=== PATIENT | male | born 1985 | race Caucasian/White ===

== ENCOUNTER 2018-09-10 09:04 | Emergency (ER) | payer OTHER, SELFPAY ==
[2018-09-10] MEDS ORDERED: TORADOL IVP ONE (09:57)
[2018-09-10] MEDS ORDERED: MORPHINE IV ONE ×2 (09:57→11:22)
[2018-09-10] MEDS ORDERED: ZOFRAN IV ONE ×2 (09:57→11:22)
--- NOTE | 2018-09-10 09:59 | Emergency Department Report ---
ED General Adult HPI - General Chief complaint: Abdominal Pain Stated complaint: ABD/BACK PAIN/NAUSEA Time Seen by Provider: 09/10/18 09:53 Source: patient Mode of arrival: Ambulatory Limitations: No Limitations - History of Present Illness Initial comments: Patient presents to the emergency department chief complaint of right flank pain that radiates into his groin that started abruptly this morning. Patient describes the pain as being intense in nature and also endorses having some nausea and vomiting as well. Patient denies any chest pain, shortness of breath, or headache. -: Sudden Location: abdomen Radiation: other (groin) Severity scale (0 -10): 7 Quality: sharp Consistency: constant Improves with: none Worsens with: none Associated Symptoms: nausea/vomiting Treatments Prior to Arrival: none - Related Data Previous Rx's Medication Instructions Recorded Last Taken Type HYDROcodone/APAP 7.5-325 [[place] 1 each PO Q6HR PRN #15 tablet 09/10/18 Unknown Rx 7.5/325] Ketorolac [Toradol] 10 mg PO Q6H PRN #20 tablet 09/10/18 Unknown Rx Ondansetron [Zofran Odt] 4 mg PO Q6HR PRN #20 tab.rapdis 09/10/18 Unknown Rx Sulfamethoxazole/Trimethoprim 1 each PO BID #10 tablet 09/10/18 Unknown Rx [Bactrim DS TAB] Tamsulosin HCl [Flomax] 0.4 mg PO DAILY #7 cap.er.24h 09/10/18 Unknown Rx Allergies Allergy/AdvReac Type Severity Reaction Status Date / Time No Known Allergies Allergy Verified 09/10/18 09:25 ED Review of Systems ROS: Stated complaint: ABD/BACK PAIN/NAUSEA Other details as noted in HPI Comment: All other systems reviewed and negative Constitutional: denies: chills, fever Eyes: denies: eye pain, eye discharge, vision change ENT: denies: ear pain, throat pain Respiratory: denies: cough, shortness of breath, wheezing Cardiovascular: denies: chest pain, palpitations Endocrine: no symptoms reported Gastrointestinal: denies: abdominal pain, nausea, diarrhea Genitourinary: denies: urgency, dysuria Musculoskeletal: denies: back pain, joint swelling, arthralgia Skin: denies: rash, lesions Neurological: denies: headache, weakness, paresthesias Psychiatric: denies: anxiety, depression Hematological/Lymphatic: denies: easy bleeding, easy bruising ED Past Medical Hx - Past Medical History Previous Medical History?: Yes Hx Asthma: Yes - Surgical History Past Surgical History?: No - Social History Smoking Status: Never Smoker Substance Use Type: None - Medications Home Medications: Home Medications Medication Instructions Recorded Confirmed Last Taken Type HYDROcodone/APAP 7.5-325 [[place] 1 each PO Q6HR PRN #15 tablet 09/10/18 Unknown Rx 7.5/325] Ketorolac [Toradol] 10 mg PO Q6H PRN #20 tablet 09/10/18 Unknown Rx Ondansetron [Zofran Odt] 4 mg PO Q6HR PRN #20 tab.rapdis 09/10/18 Unknown Rx Sulfamethoxazole/Trimethoprim 1 each PO BID #10 tablet 09/10/18 Unknown Rx [Bactrim DS TAB] Tamsulosin HCl [Flomax] 0.4 mg PO DAILY #7 cap.er.24h 09/10/18 Unknown Rx ED Physical Exam - General Limitations: No Limitations General appearance: alert, in no apparent distress - Head Head exam: Present: atraumatic, normocephalic - Eye Eye exam: Present: normal appearance - ENT ENT exam: Present: mucous membranes moist - Neck Neck exam: Present: normal inspection - Respiratory Respiratory exam: Present: normal lung sounds bilaterally. Absent: respiratory distress, wheezes, rales, rhonchi - Cardiovascular Cardiovascular Exam: Present: regular rate, normal rhythm. Absent: systolic murmur, diastolic murmur, rubs, gallop - GI/Abdominal GI/Abdominal exam: Present: soft, normal bowel sounds. Absent: distended, tenderness - Rectal Rectal exam: Present: deferred - Extremities Exam Extremities exam: Present: normal inspection - Back Exam Back exam: Present: normal inspection - Neurological Exam Neurological exam: Present: alert, oriented X3, CN II-XII intact. Absent: motor sensory deficit - Psychiatric Psychiatric exam: Present: normal affect, normal mood - Skin Skin exam: Present: warm, dry, intact, normal color. Absent: rash ED Course Vital Signs 09/10/18 09/10/18 09/10/18 09:23 09:51 10:07 Temperature 97.5 F L Pulse Rate 68 Respiratory 20 16 18 Rate Blood Pressure 150/95 O2 Sat by Pulse 98 Oximetry 09/10/18 09/10/18 10:40 11:44 Temperature Pulse Rate Respiratory 15 15 Rate Blood Pressure O2 Sat by Pulse Oximetry ED Medical Decision Making - Lab Data Result diagrams: 09/10/18 10:02 09/10/18 10:02 Lab Results 09/10/18 09/10/18 09/10/18 Range/Units 10:02 10:02 Unknown WBC 13.1 H (4.5-11.0) K/mm3 RBC 5.85 H (3.65-5.03) M/mm3 Hgb 16.1 H (11.8-15.2) gm/dl Hct 50.1 H (35.5-45.6) % MCV 86 (84-94) fl MCH 28 (28-32) pg MCHC 32 (32-34) % RDW 13.6 (13.2-15.2) % Plt Count 330 (140-440) K/mm3 Lymph % (Auto) 14.6 (13.4-35.0) % [place] % (Auto) 5.7 (0.0-7.3) % Eos % (Auto) 1.0 (0.0-4.3) % Baso % (Auto) 0.4 (0.0-1.8) % Lymph # 1.9 (1.2-5.4) K/mm3 [place] # 0.7 (0.0-0.8) K/mm3 Eos # 0.1 (0.0-0.4) K/mm3 Baso # 0.1 (0.0-0.1) K/mm3 Seg Neutrophils % 78.3 H (40.0-70.0) % Seg Neutrophils # 10.3 H (1.8-7.7) K/mm3 Sodium 140 (137-145) mmol/L Potassium 4.5 (3.6-5.0) mmol/L Chloride 101.1 (98-107) mmol/L Carbon Dioxide 25 (22-30) mmol/L Anion Gap 18 mmol/L BUN 11 (9-20) mg/dL Creatinine 1.0 (0.8-1.5) mg/dL Estimated GFR > 60 ml/min BUN/Creatinine Ratio 11 % Glucose 133 H (75-100) mg/dL Calcium 10.0 (8.4-10.2) mg/dL Total Bilirubin 0.20 (0.1-1.2) mg/dL AST 23 (5-40) units/L ALT 26 (7-56) units/L Alkaline Phosphatase 88 (35-129) units/L Total Protein 8.0 (6.3-8.2) g/dL Albumin 4.8 (3.9-5) g/dL Albumin/Globulin Ratio 1.5 % Urine Color Yellow (Yellow) Urine Turbidity Clear (Clear) Urine pH 5.0 (5.0-7.0) Ur Specific [place] 1.029 (1.003-1.030) Urine Protein 30 mg/dl (Negative) mg/dL Urine Glucose (UA) Neg (Negative) mg/dL Urine Ketones Neg (Negative) mg/dL Urine Blood Mod (Negative) Urine Nitrite Neg (Negative) Urine Bilirubin Neg (Negative) Urine Urobilinogen < 2.0 (<2.0) mg/dL Ur Leukocyte Esterase Tr (Negative) Urine WBC (Auto) 5.0 (0.0-6.0) /HPF Urine RBC (Auto) 166.0 (0.0-6.0) /HPF U Epithel Cells (Auto) < 1.0 (0-13.0) /HPF Urine Bacteria (Auto) 1+ (Negative) /HPF Calcium Oxalate [place] Urine Mucus 3+ /HPF - Radiology Data Radiology results: report reviewed - Medical Decision Making Patient had relief of his symptoms with IV morphine and Toradol Results discussed with patient Elevated white count likely due to acute stress reaction Critical care attestation.: If time is entered above; I have spent that time in minutes in the direct care of this critically ill patient, excluding procedure time. ED Disposition Clinical Impression: Nephrolithiasis Disposition: DC-01 TO HOME OR SELFCARE Is pt being admited?: No Does the pt Need Aspirin: No Condition: Stable Instructions: Kidney Stones (ED) Additional Instructions: return if worse Prescriptions: HYDROcodone/APAP 7.5-325 [[place] 7.5/325] 1 each PO Q6HR PRN #15 tablet PRN Reason: Pain Ketorolac [Toradol] 10 mg PO Q6H PRN #20 tablet PRN Reason: Pain Ondansetron [Zofran Odt] 4 mg PO Q6HR PRN #20 tab.rapdis PRN Reason: Nausea Sulfamethoxazole/Trimethoprim [Bactrim DS TAB] 1 each PO BID #10 tablet Tamsulosin HCl [Flomax] 0.4 mg PO DAILY #7 cap.er.24h Referrals: PRIMARY CARE, [Primary Care Provider] - 3-5 Days MARIA SONI MD [Staff Physician] - 3-5 Days Forms: Work/School Release Form(ED) Time of Disposition: 12:24
[2018-09-10 10:10] LABS: Basophils # (Auto) 0.1 K/mm3 (0.0-0.1); Basophils % (Auto) 0.4 % (0.0-1.8); Eosinophils # (Auto) 0.1 K/mm3 (0.0-0.4); Hematocrit 50.1 % (35.5-45.6); Hemoglobin 16.1 gm/dl (11.8-15.2); Lymphocytes # (Auto) 1.9 K/mm3 (1.2-5.4); Lymphocytes % (Auto) 14.6 % (13.4-35.0); Mean Corpuscular HGB Conc 32 % (32-34); Mean Corpuscular Volume 86 fl (84-94); Monocytes # (Auto) 0.7 K/mm3 (0.0-0.8); Monocytes % (Auto) 5.7 % (0.0-7.3); Platelet Count 330 K/mm3 (140-440); Red Blood Count 5.85 M/mm3 (3.65-5.03); Red Cell Distribution Width 13.6 % (13.2-15.2)
[2018-09-10 10:31] LABS: Alanine Aminotransferase 26 units/L (7-56); Albumin 4.8 g/dL (3.9-5); BUN/Creatinine Ratio 11; Blood Urea Nitrogen 11 mg/dL (9-20); Hemolysis Index 35
--- NOTE | 2018-09-10 11:05 | Cat Scan Report ---
CT ABDOMEN PELVIS WITHOUT CONTRAST: HISTORY: right flank pain. COMPARISON: none. TECHNIQUE: Helical CT in 1.25mm intervals without IV contrast. Sagittal and coronal reconstructions. FINDINGS: Lung bases: Normal. Liver: Normal. Biliary system: Normal. Pancreas: Normal. Spleen: Normal. Kidneys/ureters/bladder: A 5 x 6 x 6 mm calculus is identified in the mid right ureter near the level of L4. There is mild upstream right hydronephrosis. No additional ureteral stones. There are a few scattered punctate calyceal stones in both kidneys. No evidence for focal renal lesion or perinephric fluid. The bladder is unremarkable. Adrenal glands: Normal. Aorta: Normal. Intestines: Normal. Appendix: Normal. Pelvic viscera: Normal. Ascites: None. Adenopathy: None. Musculoskeletal: Normal. IMPRESSION: 5 x 6 x 6 mm calculus in the mid right ureter, mildly obstructing. Punctate bilateral renal calyceal stones.
[2018-09-10] MEDS ORDERED: REGLAN IV ONE (11:23)
[2018-09-10 11:37] LABS: Bacteria,Urine 1+ /HPF (Negative); Bilirubin,Urine NEG (Negative); Blood,Urine MOD (Negative); Calcium Oxalate Crystals,Urine FEW; Mucus,Urine 3+ /HPF; Urobilinogen,Urine < 2.0 mg/dL (<2.0)
[2018-09-10 11:38] LABS: Color,Urine Yellow (Yellow)
[2018-09-10 12:34] VITALS: BP 109/70
== END 2018-09-10 12:35 | disposition home or self-care (01) ==
LOC: ED 09:04
DX: N20.0 Calculus of kidney (principal); J45.909 Unspecified asthma, uncomplicated
CPT/HCPCS: 36415; 74176; 80053; 81001; 85025; 96374; 96375; 96376; 99284; J1885; J2270; J2405; J2765

== ENCOUNTER 2018-11-30 20:08 | Emergency (ER) | payer OTHER, SELFPAY ==
[2018-11-30] MEDS ORDERED: ZOFRAN ODT PO ONE (21:07)
[2018-11-30] MEDS ORDERED: ZOFRAN ODT ONE (21:07)
--- NOTE | 2018-11-30 21:08 | Emergency Department Report ---
Blank Doc - Documentation Documentation: 33 yo male with hx of kidney stone presents with flank pain x today stated vom iting active vomitting labs ACC evaluate
[2018-11-30] MEDS ORDERED: NACL 0.9% 1000 ML 1,000 ML IV ONE (21:09)
[2018-11-30 21:59] LABS: Basophils # (Auto) 0.1 K/mm3 (0.0-0.1); Basophils % (Auto) 0.7 % (0.0-1.8); Eosinophils % (Auto) 0.3 % (0.0-4.3); Hematocrit 46.4 % (35.5-45.6); Hemoglobin 15.7 gm/dl (11.8-15.2); Lymphocytes # (Auto) 1.8 K/mm3 (1.2-5.4); Lymphocytes % (Auto) 12.9 % (13.4-35.0); Mean Corpuscular HGB Conc 34 % (32-34); Mean Corpuscular Volume 84 fl (84-94); Monocytes # (Auto) 0.8 K/mm3 (0.0-0.8); Monocytes % (Auto) 5.7 % (0.0-7.3); Platelet Count 336 K/mm3 (140-440); Red Blood Count 5.53 M/mm3 (3.65-5.03); Red Cell Distribution Width 13.7 % (13.2-15.2)
[2018-11-30 22:19] LABS: Calcium 10.5 mg/dL (8.4-10.2)
[2018-11-30 22:56] LABS: Bilirubin,Urine NEG (Negative); Blood,Urine MOD (Negative); Color,Urine Amber (Yellow); Mucus,Urine 2+ /HPF; Urobilinogen,Urine < 2.0 mg/dL (<2.0)
[2018-11-30 23:00] LABS: Protein,Urine >500 mg/dL (Negative); RBC,Urine > 182.0 /HPF (0.0-6.0)
--- NOTE | 2018-11-30 23:16 | XRay Report ---
PROCEDURE: XR ABDOMEN 1V AP TECHNIQUE: Abdominal radiograph, single view. HISTORY: abd pain with N V COMPARISONS: None . FINDINGS: Bowel gas pattern: Nonobstructive . Masses or calcifications: None . Bony structures: No significant abnormality . Other: None . IMPRESSION: No acute abnormality. This document is electronically signed by Cordelia Fung DO., November 30 2018 11:14:12 PM ET
[2018-11-30] MEDS ORDERED: MORPHINE IV ONE (23:23)
[2018-11-30] MEDS ORDERED: ZOFRAN IV ONE (23:23)
--- NOTE | 2018-11-30 23:29 | Emergency Department Report ---
ED Abdominal Pain HPI - General Chief Complaint: Abdominal Pain Stated Complaint: ABD PAIN VOMITTING CONSTIPATION Time Seen by Provider: 11/30/18 21:05 Source: patient Mode of arrival: Ambulatory Limitations: No Limitations - History of Present Illness Initial Comments: 33-year-old male sent to the emergency room for an acute abdominal pain that started 2 hours prior to arrival. Patient reports that the pain is a 10 out of 10. Patient complains of bilateral flank pain groin pain. He reports urinary urgency but no frequency no dysuria. Patient denies any fever or chills. Patient has a past medical history kidney stone back in September 2018 feels that he has not passed a stone yet. Patient does report he works for [employer] is constantly lifting up heavy objects. MD Complaint: abdominal pain, flank pain -: hour(s) (2PTA) Location: diffuse, bilateral flank Radiation: other (abdomen) Severity scale (0 -10): 10 Quality: cramping, stabbing, sharp Consistency: constant Improves With: nothing Worsens With: movement Associated Symptoms: denies other symptoms, constipation - Related Data Previous Rx's Medication Instructions Recorded Last Taken Type Sulfamethoxazole/Trimethoprim 1 each PO BID #10 tablet 09/10/18 Unknown Rx [Bactrim DS TAB] HYDROcodone/APAP 7.5-325 [[place] 1 each PO Q6HR PRN #15 tablet 12/01/18 Unknown Rx 7.5-325 mg TAB] Ketorolac [Toradol] 10 mg PO Q6H PRN #20 tablet 12/01/18 Unknown Rx Ondansetron [Zofran ODT TAB] 4 mg PO Q6HR PRN #20 tab.rapdis 12/01/18 Unknown Rx Tamsulosin HCl [Flomax] 0.4 mg PO DAILY #7 cap.er.24h 12/01/18 Unknown Rx Allergies Allergy/AdvReac Type Severity Reaction Status Date / Time No Known Allergies Allergy Verified 09/10/18 09:25 ED Review of Systems ROS: Stated complaint: ABD PAIN VOMITTING CONSTIPATION Other details as noted in HPI Comment: All other systems reviewed and negative Constitutional: denies: chills, fever ED Past Medical Hx - Past Medical History Hx Kidney Stones: Yes Hx Asthma: Yes - Surgical History Past Surgical History?: No - Social History Smoking Status: Never Smoker Substance Use Type: None - Medications Home Medications: Home Medications Medication Instructions Recorded Confirmed Last Taken Type Sulfamethoxazole/Trimethoprim 1 each PO BID #10 tablet 09/10/18 Unknown Rx [Bactrim DS TAB] HYDROcodone/APAP 7.5-325 [[place] 1 each PO Q6HR PRN #15 tablet 12/01/18 Unknown Rx 7.5-325 mg TAB] Ketorolac [Toradol] 10 mg PO Q6H PRN #20 tablet 12/01/18 Unknown Rx Ondansetron [Zofran ODT TAB] 4 mg PO Q6HR PRN #20 tab.rapdis 12/01/18 Unknown Rx Tamsulosin HCl [Flomax] 0.4 mg PO DAILY #7 cap.er.24h 12/01/18 Unknown Rx ED Physical Exam - General Limitations: No Limitations General appearance: alert, in no apparent distress, other (appears to be uncomfortable) - Head Head exam: Present: atraumatic, normocephalic - Eye Eye exam: Present: PERRL, EOMI - ENT ENT exam: Present: mucous membranes moist - Cardiovascular Cardiovascular Exam: Present: regular rate, normal rhythm. Absent: systolic murmur, diastolic murmur, rubs, gallop - GI/Abdominal GI/Abdominal exam: Present: soft, tenderness, guarding, normal bowel sounds. Absent: distended - Extremities Exam Extremities exam: Present: normal inspection - Back Exam Back exam: Present: normal inspection - Neurological Exam Neurological exam: Present: alert, oriented X3 - Psychiatric Psychiatric exam: Present: normal affect, normal mood - Skin Skin exam: Present: warm, dry, intact, normal color. Absent: rash ED Course Vital Signs 11/30/18 11/30/18 11/30/18 20:38 21:07 22:15 Temperature 97.7 F 97 F L Pulse Rate 77 66 Respiratory 18 18 16 Rate Blood Pressure 128/77 128/77 O2 Sat by Pulse 100 100 Oximetry ED Medical Decision Making - Lab Data Result diagrams: 11/30/18 21:22 11/30/18 21:22 Laboratory Tests 11/30/18 11/30/18 11/30/18 21:22 21:22 22:41 WBC 14.0 H RBC 5.53 H Hgb 15.7 H Hct 46.4 H MCV 84 MCH 28 MCHC 34 RDW 13.7 Plt Count 336 Lymph % (Auto) 12.9 L [place] % (Auto) 5.7 Eos % (Auto) 0.3 Baso % (Auto) 0.7 Lymph # 1.8 [place] # 0.8 Eos # 0.0 Baso # 0.1 Seg Neutrophils % 80.4 H Seg Neutrophils # 11.3 H Sodium 141 Potassium 4.7 Chloride 100.3 Carbon Dioxide 23 Anion Gap 22 BUN 20 Creatinine 1.4 Estimated GFR 58 BUN/Creatinine Ratio 14 Glucose 140 H Calcium 10.5 H Total Creatine Kinase Amylase 66 Lipase 49 Urine Color [place] Urine Turbidity Clear Urine pH 9.0 H Ur Specific [place] 1.031 H Urine Protein >500 Urine Glucose (UA) Neg Urine Ketones 80 Urine Blood Mod Urine Nitrite Neg Urine Bilirubin Neg Urine Urobilinogen < 2.0 Ur Leukocyte Esterase Neg Urine WBC (Auto) 1.0 Urine RBC (Auto) > 182.0 Urine Mucus 2+ 11/30/18 23:00 WBC RBC Hgb Hct MCV MCH MCHC RDW Plt Count Lymph % (Auto) [place] % (Auto) Eos % (Auto) Baso % (Auto) Lymph # [place] # Eos # Baso # Seg Neutrophils % Seg Neutrophils # Sodium Potassium Chloride Carbon Dioxide Anion Gap BUN Creatinine Estimated GFR BUN/Creatinine Ratio Glucose Calcium Total Creatine Kinase 124 Amylase Lipase Urine Color Urine Turbidity Urine pH Ur Specific [place] Urine Protein Urine Glucose (UA) Urine Ketones Urine Blood Urine Nitrite Urine Bilirubin Urine Urobilinogen Ur Leukocyte Esterase Urine WBC (Auto) Urine RBC (Auto) Urine Mucus - Radiology Data Radiology results: report reviewed Patient: MARGO ROPER MR#: [id number] : 1985 Acct:[id number] Age/Sex: 33 / M ADM Date: 11/30/18 Loc: ED Attending Dr: Ordering Physician: TUNDE OLVERA Date of Service: 11/30/18 Procedure(s): XR abdomen 1V ap Accession Number(s): [id number] cc: TUNDE OLVERA Fluoro Time In Minutes: PROCEDURE: XR ABDOMEN 1V AP TECHNIQUE: Abdominal radiograph, single view. HISTORY: abd pain with N V COMPARISONS: None . FINDINGS: Bowel gas pattern: Nonobstructive . Masses or calcifications: None . Bony structures: No significant abnormality . Other: None . IMPRESSION: No acute abnormality. This document is electronically signed by Cordelia Fung DO. November 30 2018 11:14:12 PM ET Transcribed By: [facility] Dictated By: CORDELIA FUNG MD Electronically Authenticated By: CORDELIA FUNG MD Signed Date/Time: 11/30/182315 DD/ 10 TD/TT: 11/30/182310 Critical care attestation.: If time is entered above; I have spent that time in minutes in the direct care of this critically ill patient, excluding procedure time. ED Disposition Clinical Impression: Kidney stone on right side, Hydronephrosis Disposition: DC-01 TO HOME OR SELFCARE Is pt being admited?: No Does the pt Need Aspirin: No Condition: Stable Instructions: Kidney Stones (ED), How to Strain Your Urine (ED) Additional Instructions: Please take medication as prescribed. It is very important for you to follow up with the urologist. If he did not follow-up with the urologist your putting her kidney function in jeopardy of having failure. Please use strainer I have given the instructions on how to use. Please do not operate heavy machinery taken narcotic medication. Please increase her water intake by 2-3 L daily. Prescriptions: Tamsulosin HCl [Flomax] 0.4 mg PO DAILY #7 cap.er.24h HYDROcodone/APAP 7.5-325 [[place] 7.5-325 mg TAB] 1 each PO Q6HR PRN #15 tablet PRN Reason: Pain Ketorolac [Toradol] 10 mg PO Q6H PRN #20 tablet PRN Reason: Pain Ondansetron [Zofran ODT TAB] 4 mg PO Q6HR PRN #20 tab.rapdis PRN Reason: Nausea Referrals: B[facility] MD JOHN [Primary Care Provider] - 3-5 Days MARIA SONI MD [Staff Physician] - 3-5 Days
--- NOTE | 2018-12-01 03:08 | Cat Scan Report ---
PROCEDURE: CT ABDOMEN PELVIS WO CON TECHNIQUE: Computerized axial tomography of the abdomen and pelvis was performed without intravenous contrast. This study is performed without intravascular contrast material and its sensitivity for ab dominal and pelvic pathology, including neoplasms, inflammation, abscess, free fluid, thrombosis, art erial dissection and infarction, is reduced compared with a contrast enhanced study. HISTORY: flank pain COMPARISONS: None . FINDINGS: Visualized lower thorax: No significant abnormality. Liver: Normal size and attenuation. Spleen: Normal size and attenuation. Gallbladder and biliary system: Normal. Pancreas: Normal. Adrenals: Normal. Kidneys: Moderate right hydronephrosis and proximal hydroureter down to a 4 mm stone in the mid right ureter. The left collecting system is normal. Left small 1 to 2 mm renal calculi are noted.. GI tract: No obstruction. The cecum, appendix and colon are normal. Mild diverticular change in the distal colon. . Lymph nodes and mesentery: Normal. Vasculature: Normal.. Bladder: Normal. Reproductive organs: Normal. Peritoneum: No free fluid. Musculoskeletal structures: No significant abnormality. Other: None. IMPRESSION: Moderate right hydronephrosis and proximal hydroureter down to a 4 mm stone in the mid r ight ureter. Left renal calculi are noted. . This document is electronically signed by Cordelia Fung DO., December 01 2018 03:06:46 AM ET
[2018-12-01] MEDS ORDERED: ZOFRAN ONE (03:33)
[2018-12-01] MEDS ORDERED: NACL 0.9% 1000 ML 1,000 ML IV ONE (03:35)
[2018-12-01] MEDS ORDERED: MORPHINE IM ONE (03:36)
[2018-12-01] MEDS ORDERED: MORPHINE ONE (03:39)
[2018-12-01] MEDS ORDERED: ZOFRAN IV ONE (03:43)
[2018-12-01 05:34] VITALS: BP 110/59
== END 2018-12-01 05:36 | disposition home or self-care (01) ==
LOC: ED 20:08
DX: N13.30 Unspecified hydronephrosis (principal); N20.0 Calculus of kidney; J45.909 Unspecified asthma, uncomplicated
CPT/HCPCS: 36415; 74018; 74176; 80048; 81001; 82150; 82550; 83690; 85025; 96361; 96372; 96374; 96375; 96376; 99284; J2270; J2405; J7030; Q0162

== ENCOUNTER 2019-06-15 04:54 | Emergency (ER) | payer SELFPAY ==
[2019-06-15 05:36] LABS: Basophils # (Auto) 0.1 K/mm3 (0.0-0.1); Basophils % (Auto) 0.4 % (0.0-1.8); Eosinophils % (Auto) 0.2 % (0.0-4.3); Hemoglobin 16.3 gm/dl (11.8-15.2); Lymphocytes # (Auto) 1.8 K/mm3 (1.2-5.4); Lymphocytes % (Auto) 12.1 % (13.4-35.0); Mean Corpuscular HGB Conc 33 % (32-34); Mean Corpuscular Volume 85 fl (84-94); Monocytes # (Auto) 1.1 K/mm3 (0.0-0.8); Platelet Count 358 K/mm3 (140-440); Red Blood Count 5.75 M/mm3 (3.65-5.03); Red Cell Distribution Width 13.6 % (13.2-15.2)
[2019-06-15 06:15] LABS: Alanine Aminotransferase 20 units/L (7-56); Albumin 5.4 g/dL (3.9-5); BUN/Creatinine Ratio 11; Blood Urea Nitrogen 14 mg/dL (9-20); Calcium 10.7 mg/dL (8.4-10.2); Hemolysis Index 5
[2019-06-15] MEDS ORDERED: ZOFRAN ODT PO ONE (06:47)
[2019-06-15] MEDS ORDERED: NORCO 5/325 PO ONE (07:15)
[2019-06-15] MEDS ORDERED: NACL 0.9% 1000 ML 1,000 ML IV ONE (08:24)
--- NOTE | 2019-06-15 08:25 | Emergency Department Report ---
ED Abdominal Pain HPI - General Chief Complaint: Abdominal Pain Stated Complaint: ABD PAIN Time Seen by Provider: 06/15/19 08:17 Source: patient, EMS Mode of arrival: Ambulatory Limitations: No Limitations - History of Present Illness Initial Comments: 33-year-old male patient with history of kidney stones presents to the ED with acute onset left flank pain 2 AM today. Pain radiates around to left lower abdomen. He denies any hematuria, dysuria, or decreased urination. He rates pain at a 9 out of 10 in severity. He denies any stool changes, fever, or MD Complaint: abdominal pain, flank pain -: Sudden Location: L flank Migration to: LLQ Severity: severe Severity scale (0 -10): 10 Quality: sharp Consistency: constant Associated Symptoms: nausea. denies: vomiting - Related Data Previous Rx's Medication Instructions Recorded Last Taken Type Sulfamethoxazole/Trimethoprim 1 each PO BID #10 tablet 09/10/18 Unknown Rx [Bactrim DS TAB] HYDROcodone/APAP 7.5-325 [[place] 1 each PO Q6HR PRN #15 tablet 12/01/18 Unknown Rx 7.5-325 mg TAB] Ketorolac [Toradol] 10 mg PO Q6H PRN #20 tablet 12/01/18 Unknown Rx Ondansetron [Zofran ODT TAB] 4 mg PO Q6HR PRN #20 tab.rapdis 12/01/18 Unknown Rx Tamsulosin HCl [Flomax] 0.4 mg PO DAILY #7 cap.er.24h 12/01/18 Unknown Rx HYDROcodone/APAP 5-325 [[place] 1 each PO Q6HR PRN #10 tablet 06/15/19 Unknown Rx 5/325] Sulfamethoxazole/Trimethoprim 1 each PO BID 5 Days #10 tablet 06/15/19 Unknown Rx [Bactrim DS TAB] Tamsulosin [Flomax] 0.4 mg PO QDAY #4 cap 06/15/19 Unknown Rx Allergies Allergy/AdvReac Type Severity Reaction Status Date / Time No Known Allergies Allergy Verified 09/10/18 09:25 ED Review of Systems ROS: Stated complaint: ABD PAIN Other details as noted in HPI Comment: All other systems reviewed and negative Gastrointestinal: as per HPI ED Past Medical Hx - Past Medical History Previous Medical History?: Yes Hx Kidney Stones: Yes Hx Asthma: Yes - Surgical History Past Surgical History?: No - Social History Smoking Status: Never Smoker Substance Use Type: None - Medications Home Medications: Home Medications Medication Instructions Recorded Confirmed Last Taken Type Sulfamethoxazole/Trimethoprim 1 each PO BID #10 tablet 09/10/18 Unknown Rx [Bactrim DS TAB] HYDROcodone/APAP 7.5-325 [[place] 1 each PO Q6HR PRN #15 tablet 12/01/18 Unknown Rx 7.5-325 mg TAB] Ketorolac [Toradol] 10 mg PO Q6H PRN #20 tablet 12/01/18 Unknown Rx Ondansetron [Zofran ODT TAB] 4 mg PO Q6HR PRN #20 tab.rapdis 12/01/18 Unknown Rx Tamsulosin HCl [Flomax] 0.4 mg PO DAILY #7 cap.er.24h 12/01/18 Unknown Rx HYDROcodone/APAP 5-325 [[place] 1 each PO Q6HR PRN #10 tablet 06/15/19 Unknown Rx 5/325] Sulfamethoxazole/Trimethoprim 1 each PO BID 5 Days #10 tablet 06/15/19 Unknown Rx [Bactrim DS TAB] Tamsulosin [Flomax] 0.4 mg PO QDAY #4 cap 06/15/19 Unknown Rx ED Physical Exam - General Limitations: No Limitations General appearance: alert, in no apparent distress - Head Head exam: Present: atraumatic, normocephalic - Eye Eye exam: Present: normal appearance - Respiratory Respiratory exam: Present: normal lung sounds bilaterally. Absent: respiratory distress - Cardiovascular Cardiovascular Exam: Present: regular rate, normal rhythm. Absent: systolic murmur, diastolic murmur, rubs, gallop - GI/Abdominal GI/Abdominal exam: Present: soft, tenderness (LLQ), normal bowel sounds. Absent: guarding, rebound, rigid - Expanded GI/Abdominal Exam Expanded GI/Abdominal exam: Absent: Klein's sign - Back Exam Back exam: Present: CVA tenderness (L) - Neurological Exam Neurological exam: Present: alert, oriented X3 - Psychiatric Psychiatric exam: Present: normal affect, normal mood - Skin Skin exam: Present: warm, dry, intact, normal color. Absent: rash ED Course Vital Signs 06/15/19 06/15/19 06/15/19 05:15 07:17 09:22 Temperature 98.7 F 98.0 F Pulse Rate 79 74 66 Respiratory 18 20 15 Rate Blood Pressure 129/94 133/82 Blood Pressure 107/71 [Left] O2 Sat by Pulse 98 99 97 Oximetry 06/15/19 09:24 Temperature Pulse Rate Respiratory 15 Rate Blood Pressure Blood Pressure [Left] O2 Sat by Pulse 97 Oximetry ED Medical Decision Making - Lab Data Result diagrams: 06/15/19 05:17 06/15/19 05:17 Lab Results 06/15/19 06/15/19 06/15/19 Range/Units 05:17 05:17 09:21 WBC 15.3 H (4.5-11.0) K/mm3 RBC 5.75 H (3.65-5.03) M/mm3 Hgb 16.3 H (11.8-15.2) gm/dl Hct 49.0 H (35.5-45.6) % MCV 85 (84-94) fl MCH 28 (28-32) pg MCHC 33 (32-34) % RDW 13.6 (13.2-15.2) % Plt Count 358 (140-440) K/mm3 Lymph % (Auto) 12.1 L (13.4-35.0) % [place] % (Auto) 7.0 (0.0-7.3) % Eos % (Auto) 0.2 (0.0-4.3) % Baso % (Auto) 0.4 (0.0-1.8) % Lymph # 1.8 (1.2-5.4) K/mm3 [place] # 1.1 H (0.0-0.8) K/mm3 Eos # 0.0 (0.0-0.4) K/mm3 Baso # 0.1 (0.0-0.1) K/mm3 Seg Neutrophils % 80.3 H (40.0-70.0) % Seg Neutrophils # 12.3 H (1.8-7.7) K/mm3 Sodium 143 (137-145) mmol/L Potassium 5.0 (3.6-5.0) mmol/L Chloride 99.4 (98-107) mmol/L Carbon Dioxide 26 (22-30) mmol/L Anion Gap 23 mmol/L BUN 14 (9-20) mg/dL Creatinine 1.3 (0.8-1.5) mg/dL Estimated GFR > 60 ml/min BUN/Creatinine Ratio 11 % Glucose 154 H (75-100) mg/dL Calcium 10.7 H (8.4-10.2) mg/dL Total Bilirubin 0.60 (0.1-1.2) mg/dL AST 22 (5-40) units/L ALT 20 (7-56) units/L Alkaline Phosphatase 94 (35-129) units/L Total Protein 8.9 H (6.3-8.2) g/dL Albumin 5.4 H (3.9-5) g/dL Albumin/Globulin Ratio 1.5 % Lipase 24 (13-60) units/L Urine Color Yellow (Yellow) Urine Turbidity Cloudy (Clear) Urine pH 5.0 (5.0-7.0) Ur Specific [place] 1.027 (1.003-1.030) Urine Protein 30 mg/dl (Negative) mg/dL Urine Glucose (UA) Neg (Negative) mg/dL Urine Ketones Tr (Negative) mg/dL Urine Blood Neg (Negative) Urine Nitrite Neg (Negative) Urine Bilirubin Neg (Negative) Urine Urobilinogen < 2.0 (<2.0) mg/dL Ur Leukocyte Esterase Neg (Negative) Urine WBC (Auto) 4.0 (0.0-6.0) /HPF Urine RBC (Auto) 9.0 (0.0-6.0) /HPF Urine Bacteria (Auto) 1+ (Negative) /HPF Urine Mucus 3+ /HPF - Radiology Data Radiology results: report reviewed CT ABDOMEN AND PELVIS WITHOUT CONTRAST HISTORY: abd/flank pain, hx kidney stones COMPARISON: 04/02/2019 TECHNIQUE: Axial CT images were obtained through the abdomen and pelvis without IV contrast. Sagittal and coronal reformatted images. All CT scans at this location are performed using CT dose reduction for ALARA by means of automated exposure control. FINDINGS: CT ABDOMEN: Lung Bases: Clear. Liver: No significant abnormality. Biliary: No significant abnormality. Spleen: No significant abnormality. Unenlarged. Pancreas: No significant abnormality. Adrenals: No significant abnormality. Kidneys: A 3.9 mm calculus is identified in the proximal left ureter resulting in mild to moderate upstream left hydronephrosis. No right ureteral stones. There are 2 punctate renal calyceal stones in the mid left kidney. A 6 mm calyceal stone is identified at the inferior pole of the right kidney. No evidence for renal cystic disease or obvious mass. Lymphatics: No lymphadenopathy. Vasculature: No significant abnormality. Bowel/Peritoneum: No significant abnormality. No free air. No free fluid. Normal appendix. CT PELVIS: : No significant abnormality. Osseous Structures: No significant abnormality. Additional Findings: None IMPRESSION: 3 mm calculus in the proximal left ureter, mildly obstructing. Bilateral renal stones as described. - Medical Decision Making Patient here for left flank pain. Her of kidney stones. CT shows 3 mm calculus in the proximal left ureter, mildly obstructing. Kidney function WNL. UA shows 4 WBCs and 1+ bacteria. WBC is elevated at 15.6likely due to pain, however given bacteria in urine will treat empirically. Urine culture sent. Patient to follow-up with urology. Strict return precautions were discussed in detail with patient who states understanding. Critical care attestation.: If time is entered above; I have spent that time in minutes in the direct care of this critically ill patient, excluding procedure time. ED Disposition Clinical Impression: Kidney stone on left side, Bacteriuria Disposition: TO HOME OR SELFCARE Is pt being admited?: No Condition: Stable Instructions: Kidney Stones (ED), Urinary Tract Infection in Men (ED) Prescriptions: Sulfamethoxazole/Trimethoprim [Bactrim DS TAB] 1 each PO BID 5 Days #10 tablet Tamsulosin [Flomax] 0.4 mg PO QDAY #4 cap HYDROcodone/APAP 5-325 [[place] 5/325] 1 each PO Q6HR PRN #10 tablet PRN Reason: Pain Referrals: [facility] [Provider Group] - 3-5 Days MARIA SONI MD [Staff Physician] - 3-5 Days
--- NOTE | 2019-06-15 09:05 | Cat Scan Report ---
CT ABDOMEN AND PELVIS WITHOUT CONTRAST HISTORY: abd/flank pain, hx kidney stones COMPARISON: 04/02/2019 TECHNIQUE: Axial CT images were obtained through the abdomen and pelvis without IV contrast. Sagittal and coronal reformatted images. All CT scans at this location are performed using CT dose reduction for [place]ARA by means of automated exposure control. FINDINGS: CT ABDOMEN: Lung Bases: Clear. Liver: No significant abnormality. Biliary: No significant abnormality. Spleen: No significant abnormality. Unenlarged. Pancreas: No significant abnormality. Adrenals: No significant abnormality. Kidneys: A 3.9 mm calculus is identified in the proximal left ureter resulting in mild to moderate up stream left hydronephrosis. No right ureteral stones. There are 2 punctate renal calyceal stones in t he mid left kidney. A 6 mm calyceal stone is identified at the inferior pole of the right kidney. No evidence for renal cystic disease or obvious mass. Lymphatics: No lymphadenopathy. Vasculature: No significant abnormality. Bowel/Peritoneum: No significant abnormality. No free air. No free fluid. Normal appendix. CT PELVIS: : No significant abnormality. Osseous Structures: No significant abnormality. Additional Findings: None IMPRESSION: 3 mm calculus in the proximal left ureter, mildly obstructing. Bilateral renal stones as described. Signer Name: Isidro Lock Jr, MD Signed: 06/15/2019 9:00 AM Workstation Name: [id number]
[2019-06-15 09:48] LABS: Bacteria,Urine 1+ /HPF (Negative); Bilirubin,Urine NEG (Negative); Blood,Urine NEG (Negative); Color,Urine Yellow (Yellow); Mucus,Urine 3+ /HPF; Urobilinogen,Urine < 2.0 mg/dL (<2.0)
[2019-06-15 11:30] VITALS: BP 103/72
== END 2019-06-15 11:25 | disposition home or self-care (01) ==
LOC: ED 04:54
DX: N20.0 Calculus of kidney (principal); R82.71 Bacteriuria; R11.2 Nausea with vomiting, unspecified; J45.909 Unspecified asthma, uncomplicated; Z87.442 Personal history of urinary calculi; Z79.899 Other long term (current) drug therapy
CPT/HCPCS: 36415; 74176; 80053; 81001; 83690; 85025; 87086; 96360; 99284; J7030; Q0162